=== PATIENT | female | born 2000 | race Caucasian/White ===

== ENCOUNTER 2024-12-26 18:06 | Emergency (ER) | payer MEDICAID ==
[~2024-12-26] VITALS: Ht 157.5 cm; Wt 46.2 kg
[~2024-12-26 18:06] MED LIST: NO HOME MEDS
[2024-12-26 18:09] VITALS: BP 97/62; PULSE 84; RESP 16; TEMP 98.5; O2SAT 100
== END 2024-12-26 19:11 | disposition left against medical advice (07) ==
LOC: ER 18:06
DX: N93.9 Abnormal uterine and vaginal bleeding, unspecified (principal)
CPT/HCPCS: 99281